=== PATIENT | female | born 2000 | race Caucasian/White ===

== ENCOUNTER 2020-06-02 12:19 | Emergency (ER) | payer OTHER ==
[2020-06-02] MEDS ORDERED: Take Home: Cephalexin 500 MG Cap, 4 Cap Pack PO ONE (12:43)
--- NOTE | 2020-06-02 12:55 | EDM.PDOC ---
ED HPI GENERAL MEDICAL PROBLEM - General Time Seen by Provider: 06/02/20 12:19 Source of Information: Reports: Patient History Limitations: Reports: No Limitations - History of Present Illness INITIAL COMMENTS - FREE TEXT/NARRATIVE: Pt. presents to ER with complaints of redness/swelling to L ankle. She states she noticed this today. Pt. uses methamphetamine by injecting. She states that she does not inject in her lower extremities. Pt. wears an AFO on her L lower extremity and it appears to have caused a skin ulcer on her ankle. Denies any fever or chills. No chest pain or shortness of breath. Location: Reports: Lower Extremity, Left Associated Symptoms: Reports: Other (ulcer/redness) - Related Data Allergies Allergy/AdvReac Type Severity Reaction Status Date / Time Penicillins Allergy Other Verified 06/02/20 12:43 ED ROS GENERAL - Review of Systems Review Of Systems: See Below Constitutional: Reports: No Symptoms HEENT: Reports: No Symptoms Respiratory: Reports: No Symptoms Cardiovascular: Reports: No Symptoms Endocrine: Reports: No Symptoms GI/Abdominal: Reports: No Symptoms : Reports: No Symptoms Musculoskeletal: Reports: Other (Ulcer to posterior of L ankle) Skin: Reports: Other (see above.) Neurological: Reports: No Symptoms Psychiatric: Reports: No Symptoms Hematologic/Lymphatic: Reports: No Symptoms ED EXAM, GENERAL - Physical Exam Exam: See Below Exam Limited By: No Limitations General Appearance: Alert, WD/WN, No Apparent Distress Respiratory/Chest: No Respiratory Distress, Lungs Clear, Normal Breath Sounds, No Accessory Muscle Use, Chest Non-Tender Cardiovascular: Normal Peripheral Pulses, Regular Rate, Rhythm, No Edema, No JVD, No Murmur Peripheral Pulses: 4+: Dorsalis Pedis (L) Extremities: Other (abrasion/ulcer noted to posterior of L ankle. There is a scant amount of what appears to be serosanguinous drainage noted. There is some surrounding erythema. ) Neurological: Alert, Oriented, CN II-XII Intact, Normal Cognition, Normal Gait, No Motor/Sensory Deficits Psychiatric: Anxious Skin Exam: Warm, Dry, Other (flushed. Evidence of recent injection drug use. ) Course - Orders/Labs/Meds Meds: Medications Discontinued Medications Generic Name Dose Route Start Last Admin Trade Name Freq PRN Reason Stop Dose Admin Cephalexin 2 packet 06/02/20 12:43 06/02/20 12:56 Take Home: Cephalexin 500 Mg, 4 Cap Pack PO 06/02/20 12:44 2 packet ONETIME ONE Administration Departure - Departure Time of Disposition: 13:00 Disposition: Home, Self-Care 01 Clinical Impression: Cellulitis - Discharge Information Instructions: Cellulitis, Adult Additional Instructions: Keflex 500mg 1 cap 4 times daily for 10 days Keep the dressing on for now. Follow-up with [facility] to have your AFO adjusted so it stops injuring your ankle. Establish care locally. Recheck in clinic in 10-14 days, sooner if not gradually improving. - Assessment/Plan Plan: Keflex 500mg 1 cap 4 times daily for 10 days Keep the dressing on for now. Follow-up with [facility] to have your AFO adjusted so it stops injuring your ankle. Establish care locally. Recheck in clinic in 10-14 days, sooner if not gradually improving.
== END 2020-06-02 13:00 | disposition home or self-care (01) ==
LOC: EDBD 12:19 → VM.ED 12:19
DX: L03.116 Cellulitis of left lower limb (principal); L97.321 Non-pressure chronic ulcer of left ankle limited to breakdown of skin; Z88.0 Allergy status to penicillin
CPT/HCPCS: 99283; A9270-GY

== ENCOUNTER 2020-06-02 18:40 | Emergency (ER) | payer OTHER ==
[2020-06-02] MEDS ORDERED: Sodium Chloride 0.9% 10 ML Syringe FLUSH PRN (18:49)
--- NOTE | 2020-06-02 19:16 | EDM.PDOC ---
ED HPI GENERAL MEDICAL PROBLEM - General Chief Complaint: Drug or Alcohol Abuse Stated Complaint: ER Time Seen by Provider: 06/02/20 18:47 Source of Information: Reports: Patient History Limitations: Reports: No Limitations - History of Present Illness INITIAL COMMENTS - FREE TEXT/NARRATIVE: presents to ER via EMS, in custody of police. Gus noticed patient sitting in her car in the middle of the street with her flashers on. Pt. had her head hanging out of the sunroof of the car. No obvious trauma noted on scene. Pt. was not responding to police commands and EMS was summoned. She was behaving erratically, attempting to strike police and hitting herself in the face. When asked what she had taken, she stated "what haven't I taken today?" Pt. was seen in ER earlier today for cellulitis to her L ankle. She was started on oral keflex. At that time, she was alert and conversant, and able to recall her past medical history. Police had to pull the patient out of the car. She was pulling away and uncooperative with police and EMS and was handcuffed to the bed. She admitted that she had injected methamphetamine at that time. On arrival to ER, pt. was lying on cot, not answering questions. Her eyes was shut tightly. She would not answer questions. Parents state that she has a longstanding history of polydrug abuse. She has been hospitalized in various facilities for poly drug abuse, overdose, and suicidal ideation. Parents stated that the last time she behaved like this, she had taken acid. Onset: Today Onset Date: 06/02/20 Location: Reports: Generalized - Related Data Allergies Allergy/AdvReac Type Severity Reaction Status Date / Time Penicillins Allergy Other Verified 06/02/20 18:46 Home Meds: Home Meds Mirtazapine 15 mg PO BEDTIME 06/02/20 [History] hydrOXYzine HCL [Atarax] 50 mg PO Q8H PRN 06/02/20 [History] Past Medical History Genitourinary History: Reports: Acute Renal Failure Other Genitourinary History: Acute renal failure - 2019 Neurological History: Reports: Cerebral Aneurysms Psychiatric History: Reports: Addiction - Past Surgical History Musculoskeletal Surgical History: Reports: Other (See Below) Other Musculoskeletal Surgeries/Procedures:: compartment syndrome surgery - left lower leg Social & Family History - Tobacco Use Tobacco Use Status *Q: Unknown Ever Used Tobacco ED ROS GENERAL - Review of Systems Review Of Systems: See Below Constitutional: Reports: No Symptoms. Denies: Fever, Chills, Malaise, Weakness, Fatigue HEENT: Reports: No Symptoms Respiratory: Reports: No Symptoms Cardiovascular: Reports: No Symptoms Endocrine: Reports: No Symptoms GI/Abdominal: Reports: No Symptoms : Reports: No Symptoms Musculoskeletal: Reports: Other (ulcer to posterior of L ankle) Skin: Reports: Other (evidence of recent IV drug use) Psychiatric: Reports: Agitation, Suicidal Ideation Hematologic/Lymphatic: Reports: No Symptoms Immunologic: Reports: No Symptoms ED EXAM, GENERAL - Physical Exam Exam: See Below Exam Limited By: Uncooperative General Appearance: Alert, WD/WN Eye Exam: Bilateral Eye: EOMI, Normal Inspection, PERRL Throat/Mouth: Normal Inspection, Normal Lips, Normal Teeth, Normal Oropharynx, Normal Voice, No Airway Compromise Head: Atraumatic, Normocephalic Neck: Normal Inspection, Supple, Non-Tender, Full Range of Motion Respiratory/Chest: No Respiratory Distress, Lungs Clear, Normal Breath Sounds, No Accessory Muscle Use, Chest Non-Tender Cardiovascular: Normal Peripheral Pulses, Regular Rate, Rhythm, No Edema, No JVD, No Murmur Peripheral Pulses: 4+: Radial (R) GI/Abdominal: Soft, Non-Tender, No Distention, No Mass (Female) Exam: Deferred Rectal (Female) Exam: Deferred Extremities: No Pedal Edema, Normal Capillary Refill, Other (ulcer to posterior of L ankle. Optifoam silver dressing in place. No widespread cellulitis noted. No obvious absess formation noted.) Neurological: Alert, Oriented, CN II-XII Intact, No Motor/Sensory Deficits Psychiatric: Other (Initially would not answer any questions. Eventually she was talking. She admitted to using numerous drugs today but would not specify what. When asked if she was suicidal, she stated that she was. She stated that she would overdose to kill herself. ) Skin Exam: Warm, Dry, Other (flushed) Course - Vital Signs Last Recorded V/S: Last Vital Signs Temp 37.2 C 06/02/20 18:47 Pulse 103 H 06/02/20 18:47 Resp 16 06/02/20 18:47 BP 139/87 06/02/20 18:47 Pulse Ox 98 06/02/20 18:47 - Orders/Labs/Meds Orders: Active Orders 24 hr Category Date Time Status Head wo Cont [CT] Stat Exams 06/02/20 19:54 Taken Sodium Chloride 0.9% [Normal Saline] 1,000 ml Med 06/02/20 19:30 Active IV ASDIRECTED Sodium Chloride 0.9% [Saline Flush] Med 06/02/20 18:49 Active 10 ml FLUSH ASDIRECTED PRN Peripheral IV Insertion Adult [OM.PC] Routine Oth 06/02/20 18:50 Ordered Medication Orders Sodium Chloride (Normal Saline) 1,000 mls @ 1,000 mls/hr IV ASDIRECTED GENESIS Last Admin: 06/02/20 19:30 Dose: 1,000 mls/hr Documented by: FRANCES Sodium Chloride (Saline Flush) 10 ml FLUSH ASDIRECTED PRN PRN Reason: Keep Vein Open Labs: Laboratory Tests 06/02/20 06/02/20 06/02/20 Range/Units 19:25 19:25 19:25 WBC 14.4 H (4.0-10.0) x10^3/uL RBC 5.02 (4.00-5.50) x10^6/uL Hgb 15.1 (12.0-16.0) g/dL Hct 42.8 (33.0-47.0) % MCV 85.3 (78.0-93.0) fL MCH 30.1 (26.0-32.0) pg MCHC 35.3 (32.0-36.0) g/dL RDW Coeff of Pretty 12.9 (10.0-15.0) % Plt Count 227 (130-400) x10^3/uL Neut % (Auto) 77.0 (50.0-80.0) % Lymph % (Auto) 13.7 L (25.0-50.0) % Churchill % (Auto) 8.4 (2.0-11.0) % Eos % (Auto) 0.7 (0.0-4.0) % Baso % (Auto) 0.2 (0.2-1.2) % PT 10.9 (9.9-12.5) SEC INR 1.0 L (2.0-3.5) APTT (25.6-32.8) SEC Sodium 140 (136-145) mmol/L Potassium 3.6 (3.5-5.1) mmol/L Chloride 103 (98-107) mmol/L Carbon Dioxide 24 (21-32) mmol/L Anion Gap 16.6 H (5-15) mmol/L BUN 12 (7-18) mg/dL Creatinine 0.8 (0.55-1.02) mg/dL Est Cr Clr Drug Dosing 109.08 mL/min Estimated GFR (MDRD) > 60 Glucose 105 (74-106) mg/dL Calcium 9.8 (8.5-10.1) mg/dL Corrected Calcium 9.48 (8.5-10.1) mg/dL Magnesium 1.9 (1.8-2.4) mg/dL Total Bilirubin 0.8 (0.2-1.0) mg/dL AST 18 (15-37) U/L ALT 32 (14-59) U/L Alkaline Phosphatase 62 (46-116) U/L Total Protein 8.5 H (6.4-8.2) g/dL Albumin 4.4 (3.4-5.0) g/dL Globulin 4.1 Albumin/Globulin Ratio 1.07 TSH, Ultra Sensitive 0.787 (0.516-4.13) uIU/mL Urine Color (YELLOW) Urine Appearance (CLEAR) Urine pH (5.0-8.0) Ur Specific Rattan Urine Protein (NEGATIVE) mg/dL Urine Glucose (UA) (NEGATIVE) mg/dL Urine Ketones (NEGATIVE) mg/dL Urine Occult Blood (NEGATIVE) Urine Nitrite (NEGATIVE) Urine Bilirubin (NEGATIVE) Urine Urobilinogen (0.2) EU/dL Ur Leukocyte Esterase (NEGATIVE) Urine RBC (NOT SEEN) /HPF Urine WBC (NOT SEEN) /HPF Ur Squamous Epith Cells (NEGATIVE) /HPF Amorphous Sediment Urine Bacteria (NEGATIVE) /HPF Urine Mucus (NEGATIVE) /LPF Urine HCG, Qual (NEGATIVE) Urine Opiates Screen (NEGATIVE) Ur Buprenorphine Scrn (NEGATIVE) Ur Oxycodone Screen (NEGATIVE) Ur EDDP (Meth Metab) (NEGATIVE) Urine Methadone Screen (NEGATIVE) Acetaminophen (10-30) ug/ml Ur Barbiturates Screen (NEGATIVE) Ur Tricyclics Screen (NEGATIVE) Ur Phencyclidine Scrn (NEGATIVE) Ur Amphetamine Screen (NEGATIVE) U Methamphetamines Scrn (NEGATIVE) Urine MDMA Screen (NEGATIVE) U Benzodiazepines Scrn (NEGATIVE) U Cocaine Metab Screen (NEGATIVE) U Marijuana (THC) Screen (NEGATIVE) Ethyl Alcohol < 3 (0-3) mg/dL SARS CoV-2 RNA Rapid GIANNA (NEGATIVE) 06/02/20 06/02/20 06/02/20 Range/Units 19:25 19:25 19:29 WBC (4.0-10.0) x10^3/uL RBC (4.00-5.50) x10^6/uL Hgb (12.0-16.0) g/dL Hct (33.0-47.0) % MCV (78.0-93.0) fL MCH (26.0-32.0) pg MCHC (32.0-36.0) g/dL RDW Coeff of Pretty (10.0-15.0) % Plt Count (130-400) x10^3/uL Neut % (Auto) (50.0-80.0) % Lymph % (Auto) (25.0-50.0) % Churchill % (Auto) (2.0-11.0) % Eos % (Auto) (0.0-4.0) % Baso % (Auto) (0.2-1.2) % PT (9.9-12.5) SEC INR (2.0-3.5) APTT 24.7 L (25.6-32.8) SEC Sodium (136-145) mmol/L Potassium (3.5-5.1) mmol/L Chloride (98-107) mmol/L Carbon Dioxide (21-32) mmol/L Anion Gap (5-15) mmol/L BUN (7-18) mg/dL Creatinine (0.55-1.02) mg/dL Est Cr Clr Drug Dosing mL/min Estimated GFR (MDRD) Glucose (74-106) mg/dL Calcium (8.5-10.1) mg/dL Corrected Calcium (8.5-10.1) mg/dL Magnesium (1.8-2.4) mg/dL Total Bilirubin (0.2-1.0) mg/dL AST (15-37) U/L ALT (14-59) U/L Alkaline Phosphatase (46-116) U/L Total Protein (6.4-8.2) g/dL Albumin (3.4-5.0) g/dL Globulin Albumin/Globulin Ratio TSH, Ultra Sensitive (0.516-4.13) uIU/mL Urine Color (YELLOW) Urine Appearance (CLEAR) Urine pH (5.0-8.0) Ur Specific Rattan Urine Protein (NEGATIVE) mg/dL Urine Glucose (UA) (NEGATIVE) mg/dL Urine Ketones (NEGATIVE) mg/dL Urine Occult Blood (NEGATIVE) Urine Nitrite (NEGATIVE) Urine Bilirubin (NEGATIVE) Urine Urobilinogen (0.2) EU/dL Ur Leukocyte Esterase (NEGATIVE) Urine RBC (NOT SEEN) /HPF Urine WBC (NOT SEEN) /HPF Ur Squamous Epith Cells (NEGATIVE) /HPF Amorphous Sediment Urine Bacteria (NEGATIVE) /HPF Urine Mucus (NEGATIVE) /LPF Urine HCG, Qual (NEGATIVE) Urine Opiates Screen (NEGATIVE) Ur Buprenorphine Scrn (NEGATIVE) Ur Oxycodone Screen (NEGATIVE) Ur EDDP (Meth Metab) (NEGATIVE) Urine Methadone Screen (NEGATIVE) Acetaminophen 0 L (10-30) ug/ml Ur Barbiturates Screen (NEGATIVE) Ur Tricyclics Screen (NEGATIVE) Ur Phencyclidine Scrn (NEGATIVE) Ur Amphetamine Screen (NEGATIVE) U Methamphetamines Scrn (NEGATIVE) Urine MDMA Screen (NEGATIVE) U Benzodiazepines Scrn (NEGATIVE) U Cocaine Metab Screen (NEGATIVE) U Marijuana (THC) Screen (NEGATIVE) Ethyl Alcohol (0-3) mg/dL SARS CoV-2 RNA Rapid GIANNA Negative (NEGATIVE) 06/02/20 06/02/20 06/02/20 Range/Units 20:15 20:15 20:15 WBC (4.0-10.0) x10^3/uL RBC (4.00-5.50) x10^6/uL Hgb (12.0-16.0) g/dL Hct (33.0-47.0) % MCV (78.0-93.0) fL MCH (26.0-32.0) pg MCHC (32.0-36.0) g/dL RDW Coeff of Pretty (10.0-15.0) % Plt Count (130-400) x10^3/uL Neut % (Auto) (50.0-80.0) % Lymph % (Auto) (25.0-50.0) % Churchill % (Auto) (2.0-11.0) % Eos % (Auto) (0.0-4.0) % Baso % (Auto) (0.2-1.2) % PT (9.9-12.5) SEC INR (2.0-3.5) APTT (25.6-32.8) SEC Sodium (136-145) mmol/L Potassium (3.5-5.1) mmol/L Chloride (98-107) mmol/L Carbon Dioxide (21-32) mmol/L Anion Gap (5-15) mmol/L BUN (7-18) mg/dL Creatinine (0.55-1.02) mg/dL Est Cr Clr Drug Dosing mL/min Estimated GFR (MDRD) Glucose (74-106) mg/dL Calcium (8.5-10.1) mg/dL Corrected Calcium (8.5-10.1) mg/dL Magnesium (1.8-2.4) mg/dL Total Bilirubin (0.2-1.0) mg/dL AST (15-37) U/L ALT (14-59) U/L Alkaline Phosphatase (46-116) U/L Total Protein (6.4-8.2) g/dL Albumin (3.4-5.0) g/dL Globulin Albumin/Globulin Ratio TSH, Ultra Sensitive (0.516-4.13) uIU/mL Urine Color Dark yellow H (YELLOW) Urine Appearance Cloudy H (CLEAR) Urine pH 6.0 (5.0-8.0) Ur Specific Rattan >=1.030 Urine Protein 30 H (NEGATIVE) mg/dL Urine Glucose (UA) Negative (NEGATIVE) mg/dL Urine Ketones Trace H (NEGATIVE) mg/dL Urine Occult Blood Negative (NEGATIVE) Urine Nitrite Negative (NEGATIVE) Urine Bilirubin Small H (NEGATIVE) Urine Urobilinogen 0.2 (0.2) EU/dL Ur Leukocyte Esterase Negative (NEGATIVE) Urine RBC 0-5 (NOT SEEN) /HPF Urine WBC 0-5 (NOT SEEN) /HPF Ur Squamous Epith Cells Many H (NEGATIVE) /HPF Amorphous Sediment Moderate Urine Bacteria Few H (NEGATIVE) /HPF Urine Mucus Many H (NEGATIVE) /LPF Urine HCG, Qual Negative (NEGATIVE) Urine Opiates Screen Negative (NEGATIVE) Ur Buprenorphine Scrn Negative (NEGATIVE) Ur Oxycodone Screen Negative (NEGATIVE) Ur EDDP (Meth Metab) Negative (NEGATIVE) Urine Methadone Screen Negative (NEGATIVE) Acetaminophen (10-30) ug/ml Ur Barbiturates Screen Negative (NEGATIVE) Ur Tricyclics Screen Positive H (NEGATIVE) Ur Phencyclidine Scrn Negative (NEGATIVE) Ur Amphetamine Screen Positive H (NEGATIVE) U Methamphetamines Scrn Positive H (NEGATIVE) Urine MDMA Screen Negative (NEGATIVE) U Benzodiazepines Scrn Negative (NEGATIVE) U Cocaine Metab Screen Negative (NEGATIVE) U Marijuana (THC) Screen Positive H (NEGATIVE) Ethyl Alcohol (0-3) mg/dL SARS CoV-2 RNA Rapid GIANNA (NEGATIVE) Meds: Medications Generic Name Dose Route Start Last Admin Trade Name Freq PRN Reason Stop Dose Admin Sodium Chloride 1,000 mls @ 1,000 mls/hr 06/02/20 19:30 06/02/20 19:30 Normal Saline IV 1,000 mls/hr ASDIRECTED GENESIS Administration Sodium Chloride 10 ml 06/02/20 18:49 Saline Flush FLUSH ASDIRECTED PRN Keep Vein Open Discontinued Medications Generic Name Dose Route Start Last Admin Trade Name Freq PRN Reason Stop Dose Admin Lorazepam 1 mg 06/02/20 19:27 06/02/20 19:36 Ativan IVPUSH 06/02/20 19:28 1 mg STAT ONE Administration Nicotine 14 mg 06/02/20 20:59 06/02/20 21:18 Habitrol TRDERM 06/02/20 21:00 14 mg ONETIME ONE Administration - Radiology Interpretation Free Text/Narrative:: CT brain without contrast negative for acute pathology. - Re-Assessments/Exams Free Text/Narrative Re-Assessment/Exam: 1839 While attempting to care for the patient, she became combative again and was given ativan 1 mg IV. 1914 Her parents came in to see the patient. They stated that they are unwilling to bring the patient to their residence, as she has been uncooperative with them and often steals. 1999 Pt. was brought over for a head CT. She required a lot of coaching to remain still, but it was obtained. 2014 Pt. tearful after talking to parents, still unwilling to discuss specifically what she took in terms of drugs today. She is otherwise cooperative and no longer requires being handcuffed. 2030 Pt. is becoming more and more cooperative over time. She has stopped crying. She is now cooperative and walked to bathroom to submit urine sample. She stated that nursing that she is "in psychosis". She admits to using methamphetamine this AM and smoking some marijuana later in the afternoon. She doesn't think she took any other medications. Complains of auditory hallucinations. She states that she "thought she was in a simulation". Admits that she has not been taking her medications regularly. She admits to actively feeling suicidal. She states if she is discharged, she would go home and take all of her medications. 2113 Pt. has talked to lilli at [facility]. She is able to eat and drink. She has received a total of 1 liter or NS during her stay in ER. She has required no further sedation. Nicotine patch was applied. Departure - Departure Time of Disposition: 21:37 Disposition: DC/Tfer to Psych Hosp/Unit [facility] Clinical Impression: Methamphetamine-induced psychotic disorder, Suicidal ideation, Drug abuse, Cellulitis - Discharge Information Referrals: PCP,None [Primary Care Provider] - Forms: ED Department Discharge Sepsis Event Note (ED) - Evaluation Sepsis Screening Result: No Definite Risk - Focused Exam Vital Signs: Vital Signs Temp Pulse Resp BP Pulse Ox 06/02/20 18:47 37.2 C 103 H 16 139/87 98 - My Orders Last 24 Hours: My Active Orders 06/02/20 18:49 Sodium Chloride 0.9% [Saline Flush] 10 ml FLUSH ASDIRECTED PRN 06/02/20 18:50 Peripheral IV Insertion Adult [OM.PC] Routine 06/02/20 19:30 Sodium Chloride 0.9% [Normal Saline] 1,000 ml IV ASDIRECTED 06/02/20 19:54 Head wo Cont [CT] Stat - Assessment/Plan Last 24 Hours: My Active Orders 06/02/20 18:49 Sodium Chloride 0.9% [Saline Flush] 10 ml FLUSH ASDIRECTED PRN 06/02/20 18:50 Peripheral IV Insertion Adult [OM.PC] Routine 06/02/20 19:30 Sodium Chloride 0.9% [Normal Saline] 1,000 ml IV ASDIRECTED 06/02/20 19:54 Head wo Cont [CT] Stat Plan: Discussed findings with lilli Hoffmann at [facility]. She states that she has been accepted to [facility]. Discussed findings with patient and family. She has been a cooperative during the later portion of her visit. Transport form was filled out. All relevant documentation will be sent with the patient. She will be transported via [facility].
[2020-06-02] MEDS ORDERED: LORazepam 2 MG/ML SDV IVPUSH ONE (19:27)
[2020-06-02] MEDS ORDERED: Sodium Chloride 0.9% 1,000 ML IV SCH (19:30)
[2020-06-02 20:05] LABS: ANION GAP 16.6 mmol/L (5-15); CHLORIDE,CL 103 mmol/L (98-107); SODIUM,NA 140 mmol/L (136-145)
[2020-06-02 20:40] LABS: BARBITURATE SCREEN,URINE NEGATIVE (NEGATIVE); BENZODIAZEPINES SCREEN,URINE NEGATIVE (NEGATIVE); EDDP,URINE SCREEN NEGATIVE (NEGATIVE); METHAMPHETAMINE SCREEN, URINE POSITIVE (NEGATIVE); TCA SCREEN,URINE POSITIVE (NEGATIVE); THC SCREEN,URINE 50 NG/ML POSITIVE (NEGATIVE)
[2020-06-02] MEDS ORDERED: Nicotine 14 MG/24 Hr Patch TRDERM ONE (20:59)
--- NOTE | 2020-06-04 11:06 | CT ---
[id number] CT/CT Head WO IV EXAM: CT Head WO IV CLINICAL DATA: DECREASED LOC COMPARISON STUDY: October 01, 2019. FINDINGS: No intracranial hemorrhage, extra-axial fluid collection, mass, or acute ischemia. Stable small area of hypodensity within the cerebellar hemispheres bilaterally likely represents small areas of encephalomalacia. Generalized parenchymal atrophy with scattered areas of nonspecific white matter disease, commonly seen as sequela of chronic microvascular ischemia. Soft tissues are unremarkable. Paranasal sinuses and mastoid air cells are clear. IMPRESSION: No acute intracranial findings. Bal Crouch DO 06/04/20 1105 Thank you for allowing us to participate in the care of your patient.
== END 2020-06-02 21:58 ==
LOC: VM.ED 18:40
DX: F15.159 Other stimulant abuse with stimulant-induced psychotic disorder, unspecified (principal); R45.851 Suicidal ideations; L03.116 Cellulitis of left lower limb; Z88.0 Allergy status to penicillin; Z79.899 Other long term (current) drug therapy; Z20.822 Contact with and (suspected) exposure to COVID-19
CPT/HCPCS: 36415; 70450; 80053; 80143; 80305-QW; 80307; 81001; 81025; 83735; 84443; 85025; 85610; 85730; 96374; 99284; 99285-25; A9270-GY; J2060; J7030; U0002